=== PATIENT | male | born 1940 | race Caucasian/White ===

== ENCOUNTER → 2018-03-07 | Outpatient (CLI) | payer MEDICARE | END | disposition home or self-care (01) | LOC: KCIC MRI 07:43 | DX: M75.101 Unspecified rotator cuff tear or rupture of right shoulder, not specified as traumatic (principal); M75.21 Bicipital tendinitis, right shoulder; M25.711 Osteophyte, right shoulder | CPT/HCPCS: 73221 ==

== ENCOUNTER → 2018-07-29 | Outpatient (CLI) | payer MEDICARE ==
--- NOTE | 2018-07-29 14:02 | KCIC ---
EXAM: MRI LEFT KNEE DATE: 07/29/2018 12:30 PM CLINICAL INDICATION: Left knee pain, history of fall 1 month ago COMPARISON: None. TECHNIQUE: Multiple planar multisequence MR imaging of the left knee was performed without IV contrast. FINDINGS: Small left knee joint effusion. No Wyatt's cyst. Chondral thinning at the weightbearing surface of the lateral femoral condyle and lateral tibial plateau. Mild flattening at the posterior aspect of the lateral femoral condyle with associated chondral thinning likely bone contusion. The ACL and PCL are intact. The MCL, fibular collateral ligament, biceps femoris and IT band are intact. Popliteus tendon is normal in signal and morphology without tendinosis. Neutral patellar tracking. Borderline lateral patellar tracking. Suprapatellar fat pad edema may be seen with anterior knee pain/impingement. There is a full-thickness radial tear at the posterior horn of the lateral meniscus with associated posterior horn and lateral extrusion of the posterior and body segments. Medial meniscus is grossly intact. Marrow edema is seen at the posterior aspect of the lateral femoral condyle. Mild to moderate fatty atrophy of the medial head gastrocnemius. IMPRESSION: 1. Edema within the posterior aspect of the lateral femoral condyle and lateral tibial plateau likely bone contusions given associated mild overlying cortical flattening. Associated lateral compartment chondral thinning is seen. Marrow signal changes may also be degenerative. 2. Lateral meniscal tear with likely full-thickness radial tear at the posterior horn and associated lateral and posterior extrusion of the meniscus. 3. Small left knee joint effusion. 4. Suprapatellar fat pad edema may be seen with anterior knee pain/impingement. Electronically signed by: Quinton Frost MD (07/29/2018 1:58 PM) [facility]
== END | disposition home or self-care (01) ==
LOC: KCIC MRI 12:03
PROVIDERS: ATTEND Orthopaedic Surgery
DX: S83.282A Other tear of lateral meniscus, current injury, left knee, initial encounter (principal); M25.462 Effusion, left knee; R60.0 Localized edema; Z91.81 History of falling; X58.XXXA Exposure to other specified factors, initial encounter; Y93.89 Activity, other specified; Y92.89 Other specified places as the place of occurrence of the external cause; Y99.8 Other external cause status
CPT/HCPCS: 73721

== ENCOUNTER → 2018-09-17 | Day surgery (SDC) | payer MEDICARE ==
[~2018-09-17] VITALS: Ht 172.7 cm; Wt 98.9 kg
[~2018-09-17] MED LIST: ACET500T33 PO; ASPI-630 PO; BUPIVAC MPF-EPI 0.5%-1:200000 30 ML VIAL. ONE; DEXAMETHASONE SOD PHOS 20 MG/5 ML VIAL. ONE; EPINEPHrine VIAL 30 MG/30 ML VIAL ONE; HYDR-2758 PO; HYDROcodone/APAP 7.5/325MG 1 TAB TABLET ONE; HYDROcodone/APAP 7.5/325MG 1 TAB TABLET PO PRN; HYDROmorphone 2 MG/ML VIAL IV PRN; IV RINGERS,LACTATED 1000ML 1,000 ML IV SCH; KETOROLAC 30 MG/ML INJ FOR OR. INJ ONE; LIDOCAINE 1% PF 2 ML VIAL. ID PRN; MORPHINE SULFATE 2 MG/ML VIAL. IV PRN; ONDANSETRON PF 4 MG/2 ML VIAL. IV PRN; ONDANSETRON PF 4 MG/2 ML VIAL. ONE; PIOG45TA40 PO; PROCHLORPERAZINE 10 MG/2 ML VIAL. IV PRN; PROPOFOL 20 ML IV ONE; SEVOFLURANE 61 TO 120 MINUTES. IH ONE; TAMS0.4C2 PO; ePHEDrine PF IN SALINE 50 MG/5 ML DISP.SYRIN IV ONE; fentaNYL PF VIAL 100 MCG/2 ML VIAL IV PRN; fentaNYL PF VIAL 100 MCG/2 ML VIAL ONE
--- NOTE | 2018-09-17 10:49 | PDOC4 ---
Operative Note Operative Note Date of Procedure: September 17, 2018 Preoperative Diagnosis: left knee lateral meniscus tear Postoperative Diagnosis: left knee medial and lateral meniscus tears, 20 x 20 mm loose body, medial collateral ligament sprain Procedures Performed: left knee arthroscopy with medial and lateral meniscectomy and loose body removal 20 x 20 mm Surgeon: Zarina Mojica MD Knuckle Strap Sewer: María Young PA-C Anesthesia: General Estimated Blood Loss: 5 mL Specimens: none Drains: none Complications: none Tourniquet time: 34 minutes Indications for Procedure: The patient is a 78-year-old man with left knee pain, unrelieved with nonoperative treatment. Exam and MRI are consistent with a meniscus tear. We talked about the risks and benefits of proceeding with an arthroscopic procedure. We talked about potential risks of ongoing pain, progressive arthritis, bleeding, infection, blood clots, or other potential surgical or anesthetic complications. All of his questions about surgery were answered and they desired to proceed. Written consent was obtained. Description of Operation: The patient was identified in the preoperative holding area. The correct left knee was marked by me. The patient was taken to the operating room, where a general anesthetic was used. Preoperative antibiotics were given intravenously. A time-out procedure was performed. A tourniquet was placed on the upper thigh. Local anesthetic with epinephrine was injected sterilely into the knee joint. The limb was prepped sterilely and sterile drapes were applied. The limb was exsanguinated with an Esmarch bandage and the tourniquet was inflated to 350 mm Hg. Lateral and medial arthroscopy portals were established. The medial meniscus showed a posterior horn tear with unstable flaps. A meniscectomy was performed with basket forceps and the motorized shaver back to a smooth stable base, and the resection tapered into the middle one-third of the meniscus.The medial tibiofemoral joint showed chondromalacia Outerbridge grade III, and a shaving chondroplasty was performed removing unstable fragments of cartilage with the shaver. Despite careful intraoperative positioning, the medial joint line suddenly opened a few additional millimeters during the medial joint arthroscopy , indicating medial collateral ligament sprain. The underlying MCL likely has poor tissue quality. The intercondylar notch was free of loose bodies, and the ACL was intact. The lateral tibiofemoral joint showed an extensive unrepairable lateral meniscus tear involving the posterior horn and middle one third of the meniscus. A meniscectomy was performed with basket forceps and the motorized shaver back to a smooth stable base. There was a loose body in the lateral compartment, which was a 20 mm x 20 mm osteochondral fragment based on the lateral edge of the lateral femoral condyle. It looked like the osteochondral surface had peeled like an orange, leaving the large loose osteochondral fragment. The fragment was removed through an enlarged lateral portal using graspers and the motorized shaver. The remaining defect in the femur is Outerbridge 4. There is an eburnated area on the tibia weightbearing surface that is also Outerbridge 4. Shaving chondroplasty was performed as needed to smooth the joint. The patellofemoral joint showed chondromalacia Outerbridge grade III and IV, and a shaving chondroplasty was performed removing unstable fragments of cartilage with the motorized shaver. The suprapatellar pouch, medial and lateral gutters were free of loose bodies. Copious irrigation was used to drain all meniscal and chondral fragments, and the knee was drained of fluid.Ms. Young closed the portals with 3-0 Prolene interrupted sutures. Additional 30 mL of local anesthetic (0.5% bupivacaine with epinephrine) was injected by Ms. Young. A bulky sterile dressing was applied and the tourniquet was released. María Young PA-C my senior office support assistant sosa, helped throughout the procedure. She initially helped position the patient on the operating table with a thigh brace, lithotomy leg gonzalez and tourniquet. Intraoperatively she manipulated the knee into the correct positions for arthroscopy while I ran the arthroscope in my left hand and shaver probe or other instruments in my right hand. Finally, at the end of the case, she helped remove the lithotomy leg gonzalez, thigh brace and tourniquet and helped transfer the patient back to a [facility] in good condition. Needle and sponge counts were correct and there were no apparent complications. Zarina Mojica MD 09/17/2018 10:45 AM ZARINA MOJICA MD Sep 17, 2018 10:49
--- NOTE | 2018-09-17 11:22 | PDOC1 ---
History and Physical Date of Admission Date of Admission DATE: 09/17/18 TIME: 11:12 Identification/Chief Complaint Chief Complaint left knee pain Source Source: Chart review, Patient History of Present Illness History of Present Illness 78 year old with severe left knee pain and swelling. x-rays show only mild OA on this knee. (The right knee has [id number] arthritis but is not nearly as painful or swollen as the left knee.) MRI from [facility] on 07.29.2018 shows edema within posterior aspect of lateral femoral condyle and lateral tibial plateau likely bone contusion given associated mild overlying cortical flattening, associated lateral compartment chondral thinning, lateral meniscal tear with likely full-thickness radial tear at the posterior horn and associated lateral and posterior extrusion of meniscus, small joint effusion. He states the pain has not improved since his last visit, and he still is having difficulty with ambulation. He has a history of atrial fibrillation and was on Xarelto. He was cardioverted and this was resolved. He is no longer on blood thinners. Knee scope had been scheduled previously but cancelled due to cough. Cough is now resolved. Past Medical History Past Medical History history of afib, has been cardioverted. diabetes, cataracts. Musculoskeletal: Osteoarthritis Endocrine: Hyperthyroidism Past Surgical History Past Surgical History right knee arthroscopy 1999 Past Surgical History: Cataract Removal, Tonsillectomy Family History Family History: Diabetes, Heart Disease Current Medications Current Medications Current Medications Prochlorperazine Edisylate (Compazine) 5 mg PACU PRN PRN IV NAUSEA, MRX1; Start 09/17/18 at 07:00; Stop 09/17/18 at 18:00 Hydromorphone HCl (Dilaudid) 0.5 mg PRN Q10MIN PRN IV SEV PAIN, Second choice; Start 09/17/18 at 07:00; Stop 09/17/18 at 18:00 Lidocaine HCl (Xylocaine-Mpf 1% 2ml Vial) 2 ml PRN 1X PRN ID IV START; Start 09/17/18 at 07:00; Stop 09/17/18 at 18:00 Ringer's Solution 1,000 ml @ 30 mls/hr Q24H IV Last administered on 09/17/18at 07:00; Start 09/17/18 at 07:00; Stop 09/17/18 at 18:59 Morphine Sulfate (Morphine Sulfate) 1 mg PRN Q10MIN PRN IV SEVERE PAIN; Start 09/17/18 at 07:00; Stop 09/17/18 at 18:00 Fentanyl Citrate (Fentanyl 2ml Vial) 50 mcg PRN Q5MIN PRN IV MODERATE TO SEVERE PAIN; Start 09/17/18 at 07:00; Stop 09/17/18 at 18:00 Fentanyl Citrate (Fentanyl 2ml Vial) 25 mcg PRN Q5MIN PRN IV MILD PAIN; Start 09/17/18 at 07:00; Stop 09/17/18 at 18:00 Ondansetron HCl (Zofran) 4 mg PRN Q6HRS PRN IV NAUSEA/VOMITING; Start 09/17/18 at 07:00; Stop 09/17/18 at 18:00 Cefazolin Sodium/ Dextrose 50 ml @ 100 mls/hr 1X PREOP PRN IV PRIOR TO PROCEDURE Last administered on 09/17/18at 09:30; Start 09/17/18 at 06:00; Stop 09/17/18 at 18:00 Bupivacaine HCl/ Epinephrine Bitart (Sensorcain-Mpf Epi 0.5%-1:[id number]) 30 ml STK -MED ONCE .ROUTE Last administered on 09/17/18at 07:15; Start 09/17/18 at 07:13 ; Stop 09/17/18 at 07:14; Status DC Epinephrine HCl (Adrenalin) 30 mg STK-MED ONCE .ROUTE Last administered on 09/17at 07:15; Start 09/17/18 at 07:13; Stop 09/17/18 at 07:14; Status DC Fentanyl Citrate (Fentanyl 2ml Vial) 100 mcg STK-MED ONCE .ROUTE ; Start at 08:41; Stop 09/17/18 at 08:42; Status DC Propofol 20 ml @ As Directed STK-MED ONCE IV ; Start 09/17/18 at 09:05; Stop at 09:06; Status DC Dexamethasone Sodium Phosphate (Decadron) 20 mg STK-MED ONCE .ROUTE ; Start 09/17/18 at 09:05; Stop 09/17/18 at 09:06; Status DC Ondansetron HCl (Zofran) 4 mg STK-MED ONCE .ROUTE ; Start 09/17/18 at 09:05; Stop 09/17/18 at 09:06; Status DC Ketorolac Tromethamine (Toradol For Or Only) 30 mg STK-MED ONCE INJ ; Start 09/17/18 at 09:39; Stop 09/17/18 at 09:40; Status DC Sevoflurane (Ultane) 60 ml STK-MED ONCE IH ; Start 09/17/18 at 09:39; Stop 09/17 at 09:40; Status DC Bupivacaine HCl/ Epinephrine Bitart (Sensorcain-Mpf Epi 0.5%-1:[id number]) 30 ml STK -MED ONCE .ROUTE Last administered on 09/17/18at 10:09; Start 09/17/18 at 09:40 ; Stop 09/17/18 at 09:41; Status DC Ephedrine Sulfate (ePHEDrine PF IN SALINE SYRINGE) 50 mg STK-MED ONCE IV ; Start 09/17/18 at 09:51; Stop 09/17/18 at 09:52; Status DC Active Scripts Active Reported Tylenol Extra Strength (Acetaminophen) 500 Mg Tablet 1,000 Mg PO PRN PRN Hydrocodone-Apap 5-325 (Hydrocodone Bit/Acetaminophen) 1 Each Tablet 1 Tab PO PRN Q6HRS PRN Actos (Pioglitazone Hcl) 45 Mg Tablet 1 Tab PO DAILY Tamsulosin Hcl 0.4 Mg Cap.er.24h 1 Cap PO DAILY Aspirin 81 Mg Tab.chew 1 Tab PO DAILY Allergies Allergies: Coded Allergies: No Known Drug Allergies (Unverified , 09/17/18) ROS General: No: Chills, Night Sweats PSYCHOLOGICAL ROS: No: Anxiety HEENT: No: Heacaches Respiratory: No: Cough, Shortness of breath Cardiovascular: No Chest Pain Gastrointestinal: No Nausea, No Vomiting Musculoskeletal: Yes Joint Pain, Yes Joint Swelling Physical Exam General: Alert, Cooperative HEENT: Atraumatic Lungs: Normal air movement Heart: RRR Extremities: Other (LEFT KNEE: moderate effusion, normal alignment, no masses. Lateral joint line tenderness to palpation. Range of motion is 0-125 degrees, without crepitus or pain at the extremes of motion. The knee is stable to varus and valgus stress without subluxation or laxity. Muscle strength is normal (5/5 ) for quadriceps and hamstrings, and muscle tone is normal. The skin is normal with no scars, rashes, lesions or ulcers. Light touch sensation is intact. No edema and no varicosities. Dorsalis pedis pulse is intact and capillary refill is normal. ) Vitals Vitals Vital Signs Date Time Temp Pulse Resp B/P (MAP) Pulse Ox O2 Delivery O2 Flow Rate FiO2 09/17/18 11:00 90 16 169/77 98 Room Air 09/17/18 10:45 97.5 10 97.5 Labs Labs Laboratory Tests Test 09/17/18 07:53 Glucose (Fingerstick) 144 mg/dL (70-99) Laboratory Tests Test 09/17/18 07:53 Glucose (Fingerstick) 144 mg/dL (70-99) Images Images PATIENT: LJ OSORIO ACCOUNT: [id number] : 1940 LOCATION: [facility] MRI AGE: 78 SEX: M EXAM STATUS: REG CLI ORD. PHYSICIAN: ZARINA ALAS MD REASON: LEFT KNEE PAIN PROCEDURE: LOWER EXT JOINT WO LT EXAM: MRI LEFT KNEE DATE: 07/29/2018 12:30 PM CLINICAL INDICATION: Left knee pain, history of fall 1 month ago COMPARISON: None. TECHNIQUE: Multiple planar multisequence MR imaging of the left knee was performed without IV contrast. FINDINGS: Small left knee joint effusion. No Wyatt's cyst. Chondral thinning at the weightbearing surface of the lateral femoral condyle and lateral tibial plateau. Mild flattening at the posterior aspect of the lateral femoral condyle with associated chondral thinning likely bone contusion. The ACL and PCL are intact. The MCL, fibular collateral ligament, biceps femoris and IT band are intact. Popliteus tendon is normal in signal and morphology without tendinosis. Neutral patellar tracking. Borderline lateral patellar tracking. Suprapatellar fat pad edema may be seen with anterior knee pain/impingement. There is a full-thickness radial tear at the posterior horn of the lateral meniscus with associated posterior horn and lateral extrusion of the posterior and body segments. Medial meniscus is grossly intact. Marrow edema is seen at the posterior aspect of the lateral femoral condyle. Mild to moderate fatty atrophy of the medial head gastrocnemius. IMPRESSION: 1. Edema within the posterior aspect of the lateral femoral condyle and lateral tibial plateau likely bone contusions given associated mild overlying cortical flattening. Associated lateral compartment chondral thinning is seen. Marrow signal changes may also be degenerative. 2. Lateral meniscal tear with likely full-thickness radial tear at the posterior horn and associated lateral and posterior extrusion of the meniscus. 3. Small left knee joint effusion. 4. Suprapatellar fat pad edema may be seen with anterior knee pain/impingement. VTE Prophylaxis Ordered VTE Prophylaxis Devices: Yes VTE Pharmacological Prophylaxi: Yes Assessment/Plan Assessment/Plan We discussed options for treatment of his left knee lateral meniscus tear. Non- operative treatments including living with his knee as is and modifying his activity, NSAIDs for symptomatic pain control, or cortisone injections with physical therapy were discussed with the patient. We also discussed a left knee arthroscopy with meniscectomy. The risks of surgery including the risk of undergoing anesthesia, bleeding, infection, progressive osteoarthritis, blood clots, were discussed. The benefits of surgery including pain relief and functional improvement of the knee were also discussed. We also discussed the postoperative course of weight restrictions, and possible physical therapy required after surgery. After a thorough discussion of the risks benefits and alternatives of a left knee arthroscopy with meniscectomy the patient elected to proceed with surgery. They exhibited understanding of the risks and benefits of surgery, and all questions were answered. They will schedule at their convenience. Followup 10-14 days after surgery. ZARINA ALAS MD Sep 17, 2018 11:22
[2018-09-17 12:25] VITALS: BP 170/78
== END | disposition home or self-care (01) ==
LOC: SURG 07:25 → EDSTATUS 09:00
PROVIDERS: ATTEND Orthopaedic Surgery
DX: S83.242A Other tear of medial meniscus, current injury, left knee, initial encounter (principal); S83.282A Other tear of lateral meniscus, current injury, left knee, initial encounter; X58.XXXA Exposure to other specified factors, initial encounter; Y93.89 Activity, other specified; Y92.89 Other specified places as the place of occurrence of the external cause; Y99.8 Other external cause status; M94.262 Chondromalacia, left knee; E78.00 Pure hypercholesterolemia, unspecified; E11.9 Type 2 diabetes mellitus without complications; E66.9 Obesity, unspecified; Z87.891 Personal history of nicotine dependence; Z79.899 Other long term (current) drug therapy; Z79.82 Long term (current) use of aspirin; Z85.828 Personal history of other malignant neoplasm of skin; Z98.890 Other specified postprocedural states
CPT/HCPCS: 29880; 82962; J0171; J0690; J1100; J1885; J2405; J2704; J3490; A7015; J3010